=== PATIENT | female | born 1935 | race Caucasian/White ===

== ENCOUNTER 2017-03-26 08:00 | Emergency (ER) | payer OTHER ==
[~2017-03-26] VITALS: Ht 165.1 cm; Wt 70.0 kg
[2017-03-26 08:02] VITALS: BP 168/88
== END 2017-03-26 09:17 | disposition home or self-care (01) ==
LOC: ED 09:12
DX: T63.301A Toxic effect of unspecified spider venom, accidental (unintentional), initial encounter (principal); M79.89 Other specified soft tissue disorders; I10 Essential (primary) hypertension; K21.9 Gastro-esophageal reflux disease without esophagitis; Y92.098 Other place in other non-institutional residence as the place of occurrence of the external cause
CPT/HCPCS: 99283; Q0177

== ENCOUNTER 2019-03-04 23:30 | Observation (INO) | payer MEDICARE, OTHER ==
[~2019-03-04] VITALS: Ht 165.1 cm; Wt 70.2 kg
[~2019-03-04 23:30] MED LIST: BRIM5DRO3 RIGHTEYE
--- NOTE | 2019-03-04 23:47 | NUR ---
LEFT ARM PAIN RAD TO NECK AND EAR, STARTED THIS AM FELT WEAK PAIN UP ARM. MONITORS APPLIED, SIDERAILS UP X2, CALL LIGHT WITHIN REACH. PA AT BEDSIDE FOR EVAL
[2019-03-04] MEDS ORDERED: EYE (23:48)
[2019-03-05 00:17] LABS: BASOPHILS # (AUTO) 0.05 x10^3/uL (0-0.1); BASOPHILS % (AUTO) 1 % (0-1); EOSINOPHILS # (AUTO) 0.21 x10^3/uL (0-0.4); EOSINOPHILS % (AUTO) 3 % (1-7); LYMPHOCYTES % (AUTO) 39 % (22-44); MD NO; MEAN CORPUSCULAR HEMOGLOBIN 33.6 pg (27.0-34.8); MEAN CORPUSCULAR HGB CONC 34.1 g/dL (32.4-35.8); MEAN CORPUSCULAR VOLUME 98.5 fL (80-100); MEAN PLATELET VOLUME 8.5 fL (7.4-10.4); MONOCYTES # (AUTO) 0.83 x10^3/uL (0.2-0.8); MONOCYTES % (AUTO) 11 % (2-9); NEUTROPHILS # (AUTO) 3.71 x10^3/uL (1.8-6.8); NEUTROPHILS % (AUTO) 47 % (42-75); PLATELET COUNT 216 x10^3/uL (130-400); RED BLOOD COUNT 4.64 x10^6/uL (3.82-5.3); RED CELL DISTRIBUTION WIDTH 13.5 % (9.6-15.2)
[2019-03-05 00:30] LABS: ALANINE AMINOTRANSFERASE 22 U/L (12-78); ALBUMIN 3.3 g/dL (3.4-5.0); ANION GAP 7 mmol/L (5-15); CALCIUM 9.5 mg/dL (8.5-10.1); CHLORIDE 108 mmol/L (98-107); CREATININE 0.82 mg/dL (0.55-1.02)
--- NOTE | 2019-03-05 00:30 | NUR ---
PT TO XRAY
[2019-03-05 00:35] LABS: ALKALINE PHOSPHATASE 55 U/L (45-117); BILIRUBIN,TOTAL 0.4 mg/dL (0.2-1.0); TOTAL PROTEIN 6.8 g/dL (6.4-8.2); TROPONIN I < 0.015 ng/mL (0.000-0.045)
--- NOTE | 2019-03-05 00:47 | NUR ---
PT RESTING CALMLY, MONITORS IN PLACE, CALL LIGHT WITHIN REACH. ERP AT BEDSIDE FOR EVAL
[2019-03-05] MEDS ORDERED: hydrALAzine 20 MG/ML, 1ML IV PRN (01:30)
[2019-03-05] MEDS ORDERED: NITROGLYCERIN OINT 2%, 1GM TP ONE (01:30)
[2019-03-05] MEDS ORDERED: ASPIRIN 325 MG TABLET EC PO ONE (01:30)
[2019-03-05] MEDS ORDERED: HYDROcodone/APAP 5/325 TABLET PO PRN (01:30)
[2019-03-05] MEDS ORDERED: ACETAMINOPHEN 325 MG TABLET PO PRN (01:30)
[2019-03-05 02:30] VITALS: BP 168/80
[2019-03-05 06:27] LABS: TROPONIN I < 0.015 ng/mL (0.000-0.045)
[2019-03-05 07:45] VITALS: BP 118/65
[2019-03-05] MEDS ORDERED: GADOBUTROL 7.5 MMOL/7.5 ML PFS ONE (11:32)
[2019-03-05 13:03] VITALS: BP 159/70
[2019-03-05 14:58] VITALS: BP 173/73
[2019-03-05 15:24] VITALS: BP 153/80
[2019-03-05] MEDS: LISINOPRIL 10 MG TABLET PO SCH (15:41)
[2019-03-05 19:49] VITALS: BP 144/67
[2019-03-05] MEDS ORDERED: SIMVASTATIN 20 MG TABLET PO SCH (21:00)
[2019-03-06 01:24] VITALS: BP 130/70
[2019-03-06 06:14] LABS: BASOPHILS # (AUTO) 0.05 x10^3/uL (0-0.1); BASOPHILS % (AUTO) 1 % (0-1); EOSINOPHILS # (AUTO) 0.16 x10^3/uL (0-0.4); EOSINOPHILS % (AUTO) 2 % (1-7); LYMPHOCYTES # (AUTO) 2.65 x10^3/uL (1-3.4); LYMPHOCYTES % (AUTO) 32 % (22-44); MD NO; MEAN CORPUSCULAR HEMOGLOBIN 33.5 pg (27.0-34.8); MEAN CORPUSCULAR VOLUME 98.5 fL (80-100); MEAN PLATELET VOLUME 8.7 fL (7.4-10.4); MONOCYTES # (AUTO) 0.83 x10^3/uL (0.2-0.8); MONOCYTES % (AUTO) 10 % (2-9); NEUTROPHILS # (AUTO) 4.65 x10^3/uL (1.8-6.8); NEUTROPHILS % (AUTO) 56 % (42-75); PLATELET COUNT 224 x10^3/uL (130-400); RED BLOOD COUNT 4.85 x10^6/uL (3.82-5.3); RED CELL DISTRIBUTION WIDTH 13.1 % (9.6-15.2)
[2019-03-06 06:25] LABS: ANION GAP 7 mmol/L (5-15); CHLORIDE 111 mmol/L (98-107); CREATININE 0.73 mg/dL (0.55-1.02)
[2019-03-06 07:45] VITALS: BP 125/68
[2019-03-06] MEDS ORDERED: LISI-167 PO (08:24)
[2019-03-06] MEDS ORDERED: ASPI-496 PO (08:24)
[2019-03-06] MEDS: LISINOPRIL 10 MG TABLET PO SCH (09:33)
== END 2019-03-06 10:38 | disposition home or self-care (01) ==
LOC: ED 03-05 00:16 → EDIP 03-05 00:53 → INTOOBSV 03-05 00:53 → 5SO 03-05 01:30 → DCLOUNGE 03-06 10:27
PROVIDERS: ADMIT Internal Medicine; ATTEND Internal Medicine
DX: M47.812 Spondylosis without myelopathy or radiculopathy, cervical region (principal); M48.02 Spinal stenosis, cervical region; M79.622 Pain in left upper arm; H40.9 Unspecified glaucoma; K21.9 Gastro-esophageal reflux disease without esophagitis; R53.1 Weakness; I10 Essential (primary) hypertension; I16.0 Hypertensive urgency; Z79.82 Long term (current) use of aspirin; Z79.899 Other long term (current) drug therapy; Z90.710 Acquired absence of both cervix and uterus
CPT/HCPCS: 36415; 70553; 71045; 72050; 72156; 73030; 80048; 80053; 83880; 84484; 85025; 93005; 93017; 93306; 96374; 99285; A9585; G0378; J0360